=== PATIENT | female | born 1955 | race Caucasian/White ===

== ENCOUNTER 2018-11-12 06:03 | Observation (INO) | payer BC ==
[2018-11-12] MEDS ORDERED: ONDANSETRON HCL IV 4 MG/2 ML VIAL IVP ONE ×2 (06:22→08:05)
--- NOTE | 2018-11-12 06:23 | Emergency Department Record ---
History of Present Illness - General Chief Complaint: Syncope Stated Complaint: SYNCOPE Time Seen by Provider: 11/12/18 06:07 Source: Patient Mode of Arrival: EMS Limitations: No limitations - History of Present Illness Initial Comments: 63 yo female presents to ED for evaluation following an episode of syncope with collapse and injury to the head. Patient reports that she got out of bed to use the restroom this morning, reports that she felt as though she was going to pass out while using the bathroom, put her head between her legs to avoid passing out and then fell to the floor striking her face on the floor. Patient reports a history of syncope approximately 20 years ago. Patient denies chest pain or discomfort preceding the syncope event, reports that she felt short of breath and that her heart was racing following the event. MD Complaint: Collapsed Onset/Timin -: Minutes(s) Prodromal Symptoms: Lightheaded, Vision changes -: Second(s) Witnessed: No Injuries Sustained Associated with Event: Face Current Symptoms: Nausea Treatments Prior to Arrival: IV fluids - [place] Coma Scale Eye Response: (4) Open spontaneously Motor Response: (6) Obeys commands Verbal Response: (5) Oriented [place] Total: 15 - Related Data Home Medications Medication Instructions Recorded Confirmed Last Taken Latanoprost 0.005% Opth Arabella 2 drop OP BID 11/12/18 11/12/18 11/11/18 [Xalatan] Omeprazole 40 mg PO DAILY 11/12/18 11/12/18 11/11/18 Timolol Maleate 0.5% 5Ml Btl 2 drop OP BID 11/12/18 11/12/18 11/11/18 [Timoptic] Allergies Allergy/AdvReac Type Severity Reaction Status Date / Time Sulfa (Sulfonamide AdvReac Unknown VOMITING Unverified 02/17/14 19:32 Antibiotics) Review of Systems Constitutional: Denies: Chills, Fever, Malaise, Night sweats Eyes: Denies: Eye discharge, Eye pain ENT: Denies: Congestion, Epistaxis Respiratory: Denies: Cough, Dyspnea Cardiovascular: Reports: Syncope. Denies: Chest pain, Dyspnea on exertion Endocrine: Denies: Fatigue, Heat or cold intolerance Gastrointestinal: Reports: Nausea. Denies: Abdominal pain, Constipation, Vomiting Genitourinary: Denies: Incontinence, Retention Musculoskeletal: Denies: Arthralgia, Back pain Skin: Denies: Bruising, Change in color Neurological: Reports: Headache. Denies: Abnormal gait, Confusion, Seizure Psychiatric: Denies: Anxiety Hematological/Lymphatic: Denies: Anemia, Blood Clots Past Medical History - SOCIAL HISTORY Smoking Status: Never smoker - RESPIRATORY Hx Respiratory Disorders: No - CARDIOVASCULAR Hx Cardio Disorders: Yes Comment:: high cholesterol - NEURO Hx Neuro Disorders: Yes Comment:: menieres - GI Hx GI Disorders: Yes Hx Reflux: Yes - Hx Genitourinary Disorders: No - ENDOCRINE Hx Endocrine Disorders: Yes Hx Thyroid Disease: Yes (hypothyroid) - MUSCULOSKELETAL Hx Musculoskeletal Disorders: No - PSYCH Hx Psych Problems: No - HEMATOLOGY/ONCOLOGY Hx Hematology/Oncology Disorders: No Family Medical History Hx Cancer: Father Physical Exam - General General Appearance: Alert, Oriented x3, Cooperative, Mild distress Limitations: No limitations - Head Head exam detail: Abrasion (Small abrasion to the forehead, bridge of the nose). negative: Contusion, Delarosa's sign, General tenderness, Hematoma, Laceration - Eye Eye exam: Normal appearance. negative: Conjunctival injection, Periorbital swelling, Periorbital tenderness, Scleral icterus - ENT Ear exam: negative: Auricular hematoma, Auricular trauma Nasal Exam: negative: Active bleeding, Discharge, Dried blood, Foreign body Mouth exam: negative: Drooling, Laceration, Muffled voice, Tongue elevation - Neck Neck exam: Normal inspection. negative: Meningismus, Tenderness - Respiratory Respiratory exam: Normal lung sounds bilaterally. negative: Rales, Respiratory distress, Rhonchi, Stridor - Cardiovascular Cardiovascular Exam: Normal rhythm, Normal heart sounds, Bradycardia - GI/Abdominal GI/Abdominal exam: Soft. negative: Rebound, Rigid, Tenderness - Rectal Rectal exam: Deferred - exam: Deferred - Extremities Extremities exam: Normal inspection. negative: Pedal edema, Tenderness - Back Back exam: Denies: CVA tenderness (R), CVA tenderness (L) - Neurological Neurological exam: Alert, Normal gait, Oriented X3 - Psychiatric Psychiatric exam: Normal affect, Normal mood - Skin Skin exam: Abrasion, Normal color Type of lesion: abrasion Course Vital Signs 11/12/18 06:10 Pulse Rate [ 60 Pulse Ox Probe] Respiratory 20 Rate Blood Pressure 151/87 [Right Arm] Pulse Ox 100 - Reevaluation(s) Reevaluation #1: 11/12/18 06:24 EKG: NSR 62 Indeterminate axis, IVCD Nonspecific ST-T wave changes are present. Reevaluation #2: 11/12/18 07:10 BP reassessed, dropped to 98/61. 500 mL bolus infused, 1000 mL/2 hours ordered to infuse. Laboratory studies are pending at this time. CT Brain: No acute intracranial process Metallic ear FB retention cyst maxillary sinus. Reevaluation #3: 11/12/18 07:15 Lab called with critical lab value, potassium 2.8. Oral potassium (50 meq) ordered PO 40 meq over 10 hours ordered to infuse, and 2 gram Magnesium sulfate ordered to infuse as well. Laboratory studies were reviewed and appear otherwise grossly unremarkable for an acute process. Will admit for further evaluation. Case was discussed with Sarah Espinosa NP, will accept admission at this time. Medical Decision Making - Lab Data Result diagrams: 11/12/18 06:30 11/12/18 06:30 Disposition Disposition: Admit Clinical Impression: Bradycardia, Hypokalemia Syncope Qualifiers: Syncope type: unspecified Qualified Code(s): R55 - Syncope and collapse Hypotension (arterial) Qualifiers: Hypotension type: unspecified hypotension type Qualified Code(s): I95.9 - Hypotension, unspecified Disposition: Still a Patient at [facility] Decision to Admit: Admit from ER Decision to Admit Date: 11/12/18 Decision to Admit Time: 07:18 Condition: (2) Stable Forms: Patient Portal Access Time of Disposition: 07:18 Quality - Quality Measures Quality Measures: N/A - Blood Pressure Screening Does Patient Have Any of the Following: No Blood Pressure Classification: Normal BP Reading Systolic Measurement: 98 Diastolic Measurement: 61 Screening for High Blood Pressure: < Normal BP, F/U Not Required > [[id number]]
[2018-11-12 06:45] LABS: ABSOLUTE NEUTROPHIL COUNT 4.24; BASO % 0.3 % (0-6); EOS % 2.8 % (0-6); GRAN % 70.6 % (47-80); HEMOGLOBIN 13.9 gm/dl (11.6-16.0); LYMPH % 14.3 % (16-45); MEAN CORPUSCULAR HEMOGLOBIN 31.5 pg (27-33); MEAN CORPUSCULAR HGB CONC 33.9 g/dl (32-36); PLATELET COUNT 240 K/uL (130-400); RED BLOOD COUNT 4.41 M/uL (3.80-5.40); RED CELL DISTRIBUTION WIDTH 12.9 % (11.5-14.5)
[2018-11-12 06:58] LABS: BLOOD UREA NITROGEN 13 mg/dL (8-23); CREATININE 0.8 mg/dL (0.5-0.9); EST GLOMERULAR FILTRATION RATE > 60 mL/min
[2018-11-12 06:59] LABS: TOTAL PROTEIN 6.2 g/dL (6.6-8.7)
[2018-11-12 07:01] LABS: GLUCOSE,RANDOM 100 mg/dL (74-109)
[2018-11-12 07:03] LABS: ALB/GLOB RATIO 1.5 (1.1-1.8); ALBUMIN 3.7 g/dL (4.0-5.0); ALKALINE PHOSPHATASE 59 U/L (35-104); ALT/SGPT 11 U/L (<33); AST/SGOT 17 U/L (10.0-35.0)
[2018-11-12] MEDS ORDERED: MAGNESIUM SULFATE 16 MEQ in 0.9 % SODIUM CHLORIDE 100ML 100 ML IV ONE (07:13)
[2018-11-12] MEDS ORDERED: SOD CHLOR 0.9% WITH KCL 40MEQ 40 MEQ/1,000 ML IV.SOLN IV ONE (07:13)
[2018-11-12] MEDS ORDERED: POTASSIUM BICARB./CIT AC 25 MEQ EFF.TAB PO STA (07:14)
[2018-11-12] MEDS ORDERED: 0.9 % SODIUM CHLORIDE 1000ML 1,000 ML IV SCH (07:15)
[2018-11-12] MEDS ORDERED: ESTRADIOL TOP SCH (08:38)
[2018-11-12] MEDS: TIMOLOL MALEATE 0.5% 5ML BTL OPTH SCH (09:38)
[2018-11-12] MEDS: PANTOPRAZOLE SODIUM 40 MG TABLET PO SCH (10:00)
[2018-11-12] MEDS: LEVOTHYROXINE SODIUM 100 MCG TABLET PO SCH (10:00)
[2018-11-12] MEDS ORDERED: ACETAMINOPHEN 500 MG TABLET PO ONE (10:40)
[2018-11-12] MEDS: ACETAMINOPHEN 500 MG TABLET PO PRN (16:06)
--- NOTE | 2018-11-12 20:41 | History & Physical ---
History of Present Illness - Date of Service Date of Service for History & Physical: 11/12/18 - History of Present Illness Admitting Diagnosis: Syncope. Bradycardia. Hypotension. Hypokalemia History of Present Illness: 63 y/o female presented to ED with syncopal episode while sitting on the toilet with s/p head injury. She reports go to out of bed to use the bathroom, began to feel faint, had tunnel vision and lost consciousness. was near by and attended to her immediately, estimated time of LOC 10 seconds. She reports had an episode similar to this about 20 years ago but was associated with an extreme amount of pain. Has been in her usual state of health. No chest pain prior to event. She does admit to feeling short of breath with a racing heart just after she regained consciousness. No loss of B/B during event. No seizure disorder. Past medical history includes hyperlipidemia, meniers disease s/p cochlear implant, hypothyroidism. Upon arrival to ED VSS. HR 56-62 and regular. CBC normal. Potassium 2.8. Troponin <0.010. CT head negative for acute process. EKG NSR, short VT interval, nonspecific conduction delay. Transferred to floor in stable condition and admitted for potassium and magnesium replacement, observation, echo, and cardiology consult. 11/12/18- Resting in bed comfortably. Does have a headache and has been feeling a little nauseated since the fall. She states she feels in a fog, feels her reactions are delayed and tired. Denies any recent illness, vomiting or diarrhea PCP: Dr Diaz Travel Screening - Travel/Exposure Within Last 30 Days Have you traveled within the last 30 days?: No - Travel/Exposure Within Last Year Have you traveled outside the [place] in the last year?: No - Additonal Travel Details Have you been exposed to anyone with a communicable illness?: No - Travel Symptoms Symptom Screening: None Review of Systems Constitutional: Denies: Chills, Fever, Malaise, Night sweats Eyes: Denies: Eye discharge, Eye pain ENT: Denies: Congestion, Epistaxis Respiratory: Denies: Cough, Dyspnea Cardiovascular: Reports: Syncope. Denies: Chest pain, Dyspnea on exertion Endocrine: Denies: Fatigue, Heat or cold intolerance Gastrointestinal: Reports: Nausea. Denies: Abdominal pain, Constipation, Vomiting Genitourinary: Denies: Incontinence, Retention Musculoskeletal: Denies: Arthralgia, Back pain Skin: Denies: Bruising, Change in color Neurological: Reports: Headache. Denies: Abnormal gait, Confusion, Seizure Psychiatric: Denies: Anxiety Hematological/Lymphatic: Denies: Anemia, Blood Clots Past Medical History - SOCIAL HISTORY Smoking Status: Never smoker - RESPIRATORY Hx Respiratory Disorders: No - CARDIOVASCULAR Hx Cardio Disorders: Yes Comment:: high cholesterol - NEURO Hx Neuro Disorders: Yes Comment:: menieres - GI Hx GI Disorders: Yes Hx Reflux: Yes - Hx Genitourinary Disorders: No - ENDOCRINE Hx Endocrine Disorders: Yes Hx Thyroid Disease: Yes (hypothyroid) - MUSCULOSKELETAL Hx Musculoskeletal Disorders: No - PSYCH Hx Psych Problems: No - HEMATOLOGY/ONCOLOGY Hx Hematology/Oncology Disorders: No Family Medical History Any Significant Family History?: Yes Hx Cancer: Father H&P Meds/Allergies - Allergies Allergies: Allergies Allergy/AdvReac Type Severity Reaction Status Date / Time Sulfa (Sulfonamide AdvReac Unknown VOMITING Unverified 02/17/14 19:32 Antibiotics) - Home Medications Home Medications Medication Instructions Recorded Confirmed Last Taken Latanoprost 0.005% Opth Arabella 1 drop OP QHS 11/12/18 11/12/18 11/11/18 [Xalatan] Omeprazole 40 mg PO DAILYAC 11/12/18 11/12/18 11/11/18 Timolol Maleate 0.5% 5Ml Btl 1 drop OP DAILY 11/12/18 11/12/18 11/11/18 [Timoptic] - Active Medications Active Medications: Current Medications Acetaminophen (Tylenol 500mg Tab) 1,000 mg PO Q6H PRN PRN Reason: PAIN - MILD TO MODERATE (1-7) Last Admin: 11/12/18 16:06 Dose: 1,000 mg Documented by: Atorvastatin Calcium (Lipitor) 20 mg PO QHS PABLO Sodium Chloride () 1,000 mls @ 0 mls/hr IV .Q0M [facility] Last Infusion: 11/12/18 08:22 Dose: Infused Documented by: Latanoprost (Xalatan) 1 drop OPTH QHS PABLO Levothyroxine Sodium (Synthroid) 100 mcg PO DAILYTHY PABLO Last Admin: 11/12/18 10:00 Dose: 100 mcg Documented by: Pantoprazole Sodium (Protonix) 40 mg PO DAILYAC [facility] Last Admin: 11/12/18 10:00 Dose: 40 mg Documented by: Timolol Maleate (Timoptic) 1 drop OPTH DAILY [facility] Last Admin: 11/12/18 09:38 Dose: Not Given Documented by: Physical Exam - Vital Signs Vital Signs: Vital Signs - Last 24 Hrs Temp Pulse Resp BP Pulse Ox 11/12/18 16:00 97.9 F 68 16 112/67 99 11/12/18 12:00 98.1 F 68 16 99/55 100 11/12/18 09:00 16 11/12/18 08:24 97.5 F L 67 16 130/69 99 11/12/18 08:02 62 19 117/66 100 11/12/18 06:59 56 L 20 98/61 100 11/12/18 06:10 60 20 151/87 100 - General General Appearance: Alert, Oriented x3, Cooperative, No acute distress Limitations: No limitations - Head Head exam detail: Abrasion (Small abrasion to the forehead, bridge of the nose). negative: Contusion, Delarosa's sign, General tenderness, Hematoma, Laceration - Eye Eye exam: Normal appearance, PERRL, EOMI. negative: Conjunctival injection, Periorbital swelling, Periorbital tenderness, Scleral icterus Pupils: Normal accommodation - ENT ENT exam: Mucous membranes moist Ear exam: negative: Auricular hematoma, Auricular trauma Nasal Exam: negative: Active bleeding, Discharge, Dried blood, Foreign body Mouth exam: negative: Drooling, Laceration, Muffled voice, Tongue elevation - Neck Neck exam: Normal inspection, Other (cervical paraspinal and upper shoulder muscle tenderness). negative: Meningismus, Tenderness - Respiratory Respiratory exam: Normal lung sounds bilaterally. negative: Rales, Respiratory distress, Rhonchi, Stridor - Cardiovascular Cardiovascular Exam: Normal rhythm, Normal heart sounds, Bradycardia Peripheral Pulses: 2+: Radial (R), Radial (L), Dorsalis Pedis (R), Dorsalis Pedis (L) - GI/Abdominal GI/Abdominal exam: Soft. negative: Rebound, Rigid, Tenderness - Rectal Rectal exam: Deferred - exam: Deferred - Extremities Extremities exam: Normal inspection. negative: Pedal edema, Tenderness - Back Back exam: Denies: CVA tenderness (R), CVA tenderness (L) - Neurological Neurological exam: Alert, Normal gait, Oriented X3 - Psychiatric Psychiatric exam: Normal affect, Normal mood - Skin Skin exam: Abrasion, Normal color Type of lesion: abrasion Results - Labs Result Diagrams: 11/12/18 06:30 11/12/18 06:30 Labs Last 24 Hours: Laboratory Results - last 24 hr 11/12/18 11/12/18 11/12/18 06:30 06:30 06:30 WBC 6.0 RBC 4.41 Hgb 13.9 Hct 41.0 MCV 93.0 MCH 31.5 MCHC 33.9 RDW 12.9 Plt Count 240 MPV 11.0 H Gran % 70.6 Lymphocytes % 14.3 L Monocytes % 12.0 H Eosinophils % 2.8 Basophils % 0.3 Absolute Neutrophils 4.24 Sodium 137 Potassium 2.8 L* Chloride 102 Carbon Dioxide 23.0 Anion Gap 12.0 BUN 13 Creatinine 0.8 Estimated GFR > 60 Random Glucose 100 Calcium 9.1 Total Bilirubin 0.70 AST 17 ALT 11 Alkaline Phosphatase 59 Troponin T < 0.010 Total Protein 6.2 L Albumin 3.7 L Globulin 2.5 Albumin/Globulin Ratio 1.5 - Imaging and Cardiology CT scan - head Status: Report reviewed (negative for acute process) VTE H&P Assessment - Risk for VTE Risk for VTE: Yes Risk Level: Low Risk Assessment Date: 11/12/18 Risk Assessment Time: 20:46 VTE Orders Placed or Will Be Placed: Yes Plan - Detailed Diagnosis and Plan (1) Syncope Current Visit: Yes Status: Acute Qualifiers: Syncope type: unspecified Qualified Code(s): R55 - Syncope and collapse Base Code: R55 - SYNCOPE AND COLLAPSE Comment: 11/12/18 11/12/18 - No recent illness - No seizure history - Head CT negative for acute process - Echo - Cardiology consult (2) Concussion Current Visit: Yes Status: Acute Qualifiers: Encounter type: initial encounter Loss of consciousness presence/duration: with LOC of 30 min or less Qualified Code(s): S06.0X1A - Concussion with loss of consciousness of 30 minutes or less, initial encounter Base Code: S06.0X9A - CONCUSSION W LOSS OF CONSCIOUSNESS OF UNSP DURATION, INIT Comment: 11/12/18 - Rest and very little stimulation for the next 24 hours - Tylenol only for headache and other related pain from fall (3) Bradycardia Current Visit: Yes Status: Acute Base Code: R00.1 - BRADYCARDIA, UNSPECIFIED Comment: 11/12/18 - Does use Timolol for glaucoma which can have some systemic effect - Will continue until cardiology consult and review recommendations - TSH in AM (4) Hypokalemia Current Visit: Yes Status: Acute Base Code: E87.6 - HYPOKALEMIA Comment: 11/12/18 - K in ED 2.8, unclear etiology. NO recent diarrheal or vomiting illness - Potassium and magnesium replacement - May need low dose potassium supplementation at discharge (5) DVT prophylaxis Current Visit: Yes Status: Acute Base Code: Z29.9 - ENCOUNTER FOR PROPHYLACTIC MEASURES, UNSPECIFIED Comment: 11/12/18 - Encourage to ambulate after 24 hours of rest - Hold anticoagulation due to head injury and concussion (6) Full code status Current Visit: Yes Status: Acute Base Code: Z78.9 - OTHER SPECIFIED HEALTH STATUS Comment: 11/12/18
[2018-11-12] MEDS ORDERED: LATANOPROST 0.005% OPTH SOLUTION 2.5ML BOTTLE OPTH SCH (22:00)
[2018-11-12] MEDS ORDERED: ATORVASTATIN 20 MG TABLET PO SCH (22:00)
[2018-11-13] MEDS: ACETAMINOPHEN 500 MG TABLET PO PRN ×2 (05:12→11:13)
[2018-11-13] MEDS: LEVOTHYROXINE SODIUM 100 MCG TABLET PO SCH ×2 (05:13→06:18)
[2018-11-13] MEDS: PANTOPRAZOLE SODIUM 40 MG TABLET PO SCH ×2 (05:13→06:17)
--- NOTE | 2018-11-13 05:38 | CT SCAN REPORT ---
EXAM: CT SCAN HEAD WO CONTRAST HISTORY: SYNCOPAL EPISODE. DIZZINESS. HEADACHE. TECHNIQUE: Routine noncontrast CT examination of the brain. COMPARISON: None. FINDINGS: There is a metallic implant in the left temporoparietal portion of the skull extending peripherally behind the skin surface consistent with hearing aid implant. The ventricles and subarachnoid spaces are normal in size. No suspicious area of abnormally increased or decreased attenuation is noted throughout the brain substance. No acute skull abnormality. There is a small retention cyst versus polyp, incompletely imaged arising from the posterior wall of the right maxillary sinus. The visualized paranasal sinuses and mastoid air cells are otherwise clear. IMPRESSION: 1. NO CT EVIDENCE OF AN ACUTE INTRACRANIAL ABNORMALITY. 2. METALLIC IMPLANT IN THE LEFT TEMPOROPARIETAL REGION CONSISTENT WITH A HEARING DEVICE. 3. SMALL RETENTION CYST WITHIN THE RIGHT MAXILLARY SINUS. JOB NUMBER: [id number] MTDD
[2018-11-13 06:48] LABS: ABSOLUTE NEUTROPHIL COUNT 4.51; BASO % 0.2 % (0-6); EOS % 2.5 % (0-6); GRAN % 73.9 % (47-80); HEMATOCRIT 37.3 % (35.0-47.0); HEMOGLOBIN 12.2 gm/dl (11.6-16.0); LYMPH % 13.5 % (16-45); MEAN CELL VOLUME 95.9 fl (81-97); MEAN CORPUSCULAR HEMOGLOBIN 31.4 pg (27-33); MEAN CORPUSCULAR HGB CONC 32.7 g/dl (32-36); MEAN PLATELET VOLUME 10.7 fl (7.4-10.4); MONO % 9.9 % (0-9); PLATELET COUNT 206 K/uL (130-400); RED BLOOD COUNT 3.89 M/uL (3.80-5.40); RED CELL DISTRIBUTION WIDTH 13.2 % (11.5-14.5); WHITE BLOOD COUNT W/O DIFF 6.1 K/uL (4.2-12.2)
[2018-11-13 07:32] LABS: ALB/GLOB RATIO 1.5 (1.1-1.8); ALBUMIN 3.2 g/dL (4.0-5.0); ALKALINE PHOSPHATASE 53 U/L (35-104); ALT/SGPT 13 U/L (<33); AST/SGOT 20 U/L (10.0-35.0); BLOOD UREA NITROGEN 7 mg/dL (8-23); CREATININE 0.8 mg/dL (0.5-0.9); EST GLOMERULAR FILTRATION RATE > 60 mL/min; GLUCOSE,RANDOM 107 mg/dL (74-109); TOTAL PROTEIN 5.4 g/dL (6.6-8.7)
[2018-11-13] MEDS: TIMOLOL MALEATE 0.5% 5ML BTL OPTH SCH (09:47)
--- NOTE | 2018-11-13 14:19 | Discharge Summary ---
Providers Discharge Summary Date: 11/13/18 Date of admission: 11/12/18 07:46 Attending physician: ELIUD DEMARCO Primary care physician: Filippo Diaz D.O. 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 negative: Contusion, Delarosa's sign, General tenderness, Hematoma, Laceration - Eye Eye exam: Normal appearance, PERRL, EOMI. negative: Conjunctival injection, Periorbital swelling, Periorbital tenderness, Scleral icterus Pupils: Normal accommodation - ENT ENT exam: Mucous membranes moist Ear exam: negative: Auricular hematoma, Auricular trauma Nasal Exam: negative: Active bleeding, Discharge, Dried blood, Foreign body Mouth exam: negative: Drooling, Laceration, Muffled voice, Tongue elevation - Neck Neck exam: Normal inspection, Other (cervical paraspinal and upper shoulder muscle tenderness). negative: Meningismus, Tenderness - Respiratory Respiratory exam: Normal lung sounds bilaterally. negative: Rales, Respiratory distress, Rhonchi, Stridor - Cardiovascular Cardiovascular Exam: Normal rhythm, Normal heart sounds, Bradycardia Peripheral Pulses: 2+: Radial (R), Radial (L), Dorsalis Pedis (R), Dorsalis Pedis (L) - GI/Abdominal GI/Abdominal exam: Soft. negative: Rebound, Rigid, Tenderness - Rectal Rectal exam: Deferred - exam: Deferred - Extremities Extremities exam: Normal inspection. negative: Pedal edema, Tenderness - Back Back exam: Denies: CVA tenderness (R), CVA tenderness (L) - Neurological Neurological exam: Alert, Normal gait, Oriented X3 - Psychiatric Psychiatric exam: Normal affect, Normal mood - Skin Skin exam: Abrasion, Normal color Type of lesion: abrasion Hospitalization - Hospitalization Admission Diagnosis: Syncope. Bradycardia. Hypotension. Hypokalemia - Problem List/Discharge Diagnosis (1) Syncope Current Visit: Yes Status: Acute Discharge Diagnosis: Syncope type: unspecified Qualified Code(s): R55 - Syncope and collapse Base Code: R55 - SYNCOPE AND COLLAPSE Comment: 11/13/18 - No recent illness - No seizure history - Head CT negative for acute process - Echo- no acute concerns - Cardiology consult complete, no new recommendations, no need for further services. Syncope likely vasovagal (2) Concussion Current Visit: Yes Status: Acute Discharge Diagnosis: Encounter type: initial encounter Loss of consciousness presence/duration: with LOC of 30 min or less Qualified Code(s): S06.0X1A - Concussion with loss of consciousness of 30 minutes or less, initial encounter Base Code: S06.0X9A - CONCUSSION W LOSS OF CONSCIOUSNESS OF UNSP DURATION, INIT Comment: 11/13/18 - Rest and very little stimulation for the next 24 hours, reports feels much estrada today, less foggy, headache is better - Tylenol only for headache and other related pain from fall (3) Bradycardia Current Visit: Yes Status: Acute Base Code: R00.1 - BRADYCARDIA, UNSPECIFIED Comment: 11/13/18 - Does use Timolol for glaucoma which can have some systemic effect - TSH 6.04, follow up with PCP for management (4) Hypokalemia Current Visit: Yes Status: Acute Base Code: E87.6 - HYPOKALEMIA Comment: 11/13/18 - K in ED 2.8, unclear etiology. NO recent diarrheal or vomiting illness - K 3.5 today after supplementation - low dose potassium supplementation at discharge (5) DVT prophylaxis Current Visit: Yes Status: Acute Base Code: Z29.9 - ENCOUNTER FOR PROPHYLA CTIC MEASURES, UNSPECIFIED Comment: 11/13/18 - Encourage to ambulate after 24 hours of rest - Hold anticoagulation due to head injury and concussion (6) Full code status Current Visit: Yes Status: Acute Base Code: Z78.9 - OTHER SPECIFIED HEALTH STATUS Comment: 11/13/18 - Hospitalization Course Disposition: Home, Self-Care Hospital Course: 63 y/o female presented to ED with syncopal episode while sitting on the toilet with s/p head injury. She reports go to out of bed to use the bathroom, began to feel faint, had tunnel vision and lost consciousness. was near by and attended to her immediately, estimated time of LOC 10 seconds. She reports had an episode similar to this about 20 years ago but was associated with an extreme amount of pain. Has been in her usual state of health. No chest pain prior to event. She does admit to feeling short of breath with a racing heart just after she regained consciousness. No loss of B/B during event. No seizure disorder. Past medical history includes hyperlipidemia, meniers disease s/p cochlear implant, hypothyroidism. Upon arrival to ED VSS. HR 56-62 and regular. CBC normal. Potassium 2.8. Troponin <0.010. CT head negative for acute process. EKG NSR, short OK interval, nonspecific conduction delay. Transferred to floor in stable condition and admitted for potassium and magnesium replacement, observation, echo, and c ardiology consult. 11/12/18- Resting in bed comfortably. Does have a headache and has been feeling a little nauseated since the fall. She states she feels in a fog, feels her reactions are delayed and tired. Denies any recent illness, vomiting or diarrhea. 11/13/18- Hospital course unremarkable. Did have improvement of fogginess, headache, drowsiness over the past 24 hours. No further syncopal episodes, no chest pain, palpitations, diaphoresis. Cardiology consult with no additional recommendations or need for further services. Syncopal episode likely due to vasovagal response. PCP: Dr Diaz Procedures: Imaging and X-Rays 11/12/18 06:18 HEAD WO CONTRAST [CT] Stat Cardiology Procedures 11/12/18 06:07 EKG NOW 11/12/18 08:38 Binding Cementer French Cord .Continuous 11/12/18 09:20 Echo W/CF & Cardiac Doppler NOW Abnormal Labs: Abnormal Lab Results 11/12/18 11/12/18 11/13/18 Range/Units 06:30 06:30 06:34 MPV 11.0 H 10.7 H (7.4-10.4) fl Lymphocytes % 14.3 L 13.5 L (16-45) % Monocytes % 12.0 H 9.9 H (0-9) % Potassium 2.8 L* (3.4-4.5) mmol/L BUN (8-23) mg/dL Calcium (8.8-10.2) mg/dL Total Protein 6.2 L (6.6-8.7) g/dL Albumin 3.7 L (4.0-5.0) g/dL TSH (0.270-4.20) uIU/mL 11/13/18 11/13/18 Range/Units 06:34 06:34 MPV (7.4-10.4) fl Lymphocytes % (16-45) % Monocytes % (0-9) % Potassium (3.4-4.5) mmol/L BUN 7 L (8-23) mg/dL Calcium 8.4 L (8.8-10.2) mg/dL Total Protein 5.4 L (6.6-8.7) g/dL Albumin 3.2 L (4.0-5.0) g/dL TSH 6.04 H (0.270-4.20) uIU/mL Condition at Discharge: (2) Stable Discharge Medications - Discharge Medications Prescriptions: Potassium Chloride 10 meq PO DAILY 30 Days #30 tablet.er Home Medications: Ambulatory Orders Atorvastatin Calcium [Lipitor] 20 mg PO QHS 02/17/14 [Last Taken 11/11/18] Estradiol [Vivelle-Dot] 1 patch TOP VALIENTE 02/17/14 [Last Taken 11/11/18] Levothyroxine Sodium [Levoxyl] 100 mcg PO DAILYAC 02/17/14 [Last Taken 11/11/18] Triamterene/Hydrochlorothiazid [Triamterene-Hctz 75-50 mg Tab] 1 tab PO DAILY 02/17/14 [Last Taken 11/11/18] Latanoprost 0.005% Opth Arabella [Xalatan] 1 drop OP QHS 11/12/18 [Last Taken 11/11/18] Omeprazole 40 mg PO DAILYAC 11/12/18 [Last Taken 11/11/18] Timolol Maleate 0.5% 5Ml Btl [Timoptic] 1 drop OP DAILY 11/12/18 [Last Taken 11/11/18] Acetaminophen [Tylenol 500Mg Tab] 1,000 mg PO Q6H PRN tablet 11/13/18 [Last Taken Unknown] Potassium Chloride 10 meq PO DAILY 30 Days #30 tablet.er 11/13/18 [Last Taken Unknown] Discharge Plan - Discharge Instructions Activity at Discharge: Increase Activity as Tolerated Diet at Discharge: Regular Diet Instructions: Potassium Content of Foods List (DC), Syncope (DC), Concussion (DC), Bradycardia (DC) Additional Instructions: - Low activity for the next couple days - [place] diet until nausea resolved - Tylenol only for headache and muscle pain - Follow up with PCP in 1 week - Take Potassium supplement daily - Repeat labs in 1 week (order is in the system already) Quality Measures - Quality Measures Quality Measures: Documentation of Current Medications in Medical Record, Screening for High Blood Pressure and F/U Documented - Current Medications Quality Measure: Measure #130: Documentation of Current Medications Documentation of Current Medications: <Current Medications Documented/Reviewed> [G8427] - Blood Pressure Screening Quality Measure: Screening for High Blood Pressure and Follow-Up Documented Does Patient Have Any of the Following: No Blood Pressure Classification: Normal BP Reading Systolic Measurement: 107 Diastolic Measurement: 66 Screening for High Blood Pressure: < Normal BP, F/U Not Required > [G8783] - Elder Abuse Suspicion Index EASI Reference Information: Randy PIEDRA, Saad C, Billie D, Frank Alvarenga.Development and validation of a tool to assist physicians identification of elder abuse: The Elder Abuse Suspicion Index (EASI ). Journal of Elder Abuse and Neglect, 2008; 20 (3): 276-300.
--- NOTE | 2018-11-14 15:30 | Medical Records Consult ---
DATE OF CONSULTATION: 11/13/2018 REASON FOR CONSULTATION: The patient is 63 years old. She was seen in consultation for syncope. HISTORY OF PRESENT ILLNESS: The patient presented to [facility] with syncopal episode while attempting to use the bathroom. She states she awoke in the middle of the night to use the toilet and felt faint. She states her vision started to become tunneled, until it was lost. She reportedly fell and hit her head against the counter. She has a bruise on her forehead and some discomfort. She has had no previous episode of syncope. She denies angina, palpitations, TIA, or history of coronary artery disease. She has no previous history of diabetes mellitus or hypertension. She is on atorvastatin for a history of hyperlipidemia. She is on Levothyroxine for a history of hypothyroidism. She also is on Dyazide for a history of Meniere's disease. Her ECG demonstrated sinus rhythm with no significant ST-T changes. Her troponins were negative. PAST MEDICAL HISTORY: Hypothyroidism, glaucoma, Meniere's disease. PAST SURGICAL HISTORY: None. MEDICATIONS: At home include: 1. Timolol eye drops. 2. Omeprazole 40 mg daily. 3. She reports taking atorvastatin 20 mg at bedtime. 4. She reports also taking Levothyroxine 100 mcg daily. ALLERGIES: SULFA, causing vomiting. FAMILY HISTORY: Mother and father had no known history of coronary artery disease. PHYSICAL EXAMINATION: VITAL SIGNS: She was afebrile, pulse was 68, respirations 16, blood pressure was 112/67. LUNGS: Clear to auscultation. HEART: Exam was normal. ABDOMEN: Soft. EXTREMITIES: Revealed no edema. LABORATORY: Her CBC was 6.0, hemoglobin 13.9, platelets 240,000. Sodium 137, potassium was 2.8 and corrected. BUN was 13. Creatinine 0.8. Blood sugar was 100. Troponin was negative. Echocardiogram on 11/12/2018 demonstrated an ejection fraction of 55 to 60% with mild mitral regurgitation. FINAL IMPRESSION: 1. Syncope, likely vasovagal. 2. Hyperlipidemia. 3. Hypothyroidism. 4. Meniere's disease, on Dyazide. PLAN: The patient is currently asymptomatic and has a history consistent with a vasovagal syncopal episode. Echocardiogram was within normal limits. ECG at baseline is normal. Her troponins were negative. Her Dyazide diuretic may have contributed to her episode and she was hypokalemic. She will refer to her ENT doctor regarding alternative agents. No further cardiac testing is warranted at this time. She can be discharged for outpatient followup if she continues to have symptoms. CHANDA
== END 2018-11-13 15:00 | disposition home or self-care (01) ==
LOC: ER 06:03 → MEDSURG 07:46
PROVIDERS: ADMIT Internal Medicine; ATTEND Internal Medicine
DX: R55 Syncope and collapse (principal); S06.0X1A Concussion with loss of consciousness of 30 minutes or less, initial encounter; R42 Dizziness and giddiness; S00.31XA Abrasion of nose, initial encounter; S00.81XA Abrasion of other part of head, initial encounter; R00.1 Bradycardia, unspecified; E87.6 Hypokalemia; I95.9 Hypotension, unspecified; E78.00 Pure hypercholesterolemia, unspecified; H81.09 Meniere's disease, unspecified ear; K21.9 Gastro-esophageal reflux disease without esophagitis; E03.9 Hypothyroidism, unspecified; Z96.21 Cochlear implant status
CPT/HCPCS: 70450; 80053; 84443; 84484; 85025; 93005; 93010; 93306; 96361; 96365; 96375; 99217; 99220; 99285; J2405; J7030